=== PATIENT | male | born 1950 | race African-American/Black ===

== ENCOUNTER 2019-08-21 13:54 | Emergency (ER) | payer MEDICARE ==
[2019-08-21] MEDS ORDERED: Aspirin 81 mg CHEW TAB* 81 MG TAB.CHEW PO ONE (14:13)
--- NOTE | 2019-08-21 14:31 | UC ---
General HPI - HPI Summary HPI Summary: 68 yo gentleman c/o "passed out" approx 12:30pm today. Reports that he walked approx 50-60ft from truck to the kitchen and passed out. No h/a. Did not hit head. Denies sob / cp / palpitations. No GI issues. No focal weakness / speech disturbance. - History of Current Complaint Stated Complaint: BLACKINGING OUT Time Seen by Provider: 08/21/19 14:01 Hx Obtained From: Patient PMH/Surg Hx/FS Hx/Imm Hx Previously Healthy: No - htn Cardiovascular History: Hypertension - Family History Known Family History: Positive: Other - mom of stroke Review of Systems All Other Systems Reviewed And Are Negative: Yes Constitutional: Positive: Negative Skin: Positive: Negative Eyes: Positive: Negative ENT: Positive: Negative Respiratory: Positive: Negative Cardiovascular: Positive: Negative Gastrointestinal: Positive: Negative Genitourinary: Positive: Negative Motor: Positive: Other - see hpi Musculoskeletal: Positive: Other: - see hpi Neurological: Positive: Other Psychological: Positive: Negative Is Patient Immunocompromised?: No Physical Exam Triage Information Reviewed: Yes Appearance: Well-Appearing - walked to stretcher. Exam performed in stretcher. Conversing in full sentances easily and appropriately., Well-Nourished Vital Signs Reviewed: Yes Eye Exam: Other - arcus scler. ENT: Positive: Pharynx normal, Nasal congestion, Other - mmm trachea midline Neck exam: Normal Neck: Positive: Supple, Nontender Respiratory Exam: Normal Respiratory: Positive: Chest non-tender, Lungs clear, Normal breath sounds, No respiratory distress, No accessory muscle use Cardiovascular Exam: Other - HR regular, 2 extra beats noted during exam. HR correlates with R radial pulse. Cardiovascular: Positive: Brisk Capillary Refill Abdominal Exam: Normal Abdomen Description: Positive: Nontender Musculoskeletal Exam: Normal - moves x 4 ext's. Neurological Exam: Normal - aaox3 facial expressions grossly symmetric. MMM. CN 1 - 12 no acute issues (+ smell to alcohol swab). Moves x ext's. Strenght 5 /5 x 4 ext's. Distal sens LT present x 4 ext's. No pronator drift noted. Psychological Exam: Normal - conversing easily and appropriately Skin Exam: Normal - nondiaphoretic. + evidence BLE pvd, paucity of hair growth. No unilateral edema. Course/Dx - Course Course Of Treatment: EKG 78 bpm pr [address] elevation v2-3, + lvh, pob lae. No old ekg for comparison. ASA administered. O2 / nc administered. RN placed IV. I reviewed ekg /clinical hx / sx with pt. Concerning for acute cardiac event. Recommend transfer to ED. Mr. Juares carefully considered but absolutely refused to go to the ED. "I'm going home." Clearly disclosed that by not going to the ED, Mr. Juares risks several problems, including albeit not limited to disability, heart attack , stroke, . Upon discharge, Mr. Juares reports that he will go to the ED after all, citing somewhere in [place]. Upon final d/c, he reports that he will go to the ED here in [place]. I called the ED in [place], D/w Dr. Curry 14:23. 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 Upon questioning, Mr. Juares did not want medical information disclosed to family other than going to the ED. Mr. Juares was given the opportunity to ask questions, answered to the best of our ability. - Diagnoses Provider Diagnosis: Syncope Discharge ED - Sign-Out/Discharge Documenting (check all that apply): Patient Departure All imaging exams completed and their final reports reviewed: No Studies - Discharge Plan Condition: Guarded Disposition: AGAINST MEDICAL ADVICE Patient Education Materials: Syncope (ED) Additional Instructions: PLEASE GO DIRECTLY TO THE EMERGENCY DEPARTMENT. STOP AND CALL 911 IF ANY PROBLEMS ON THE WAY. Please go directly to the Emergency Department, do not go home. You are leaving against medical advice - your EKG is abnormal! You received 324mg aspirin here today. - Billing Disposition and Condition Condition: GUARDED Disposition: Against Medical Advice
[2019-08-21 14:43] VITALS: BP 138/74
== END 2019-08-21 14:51 | disposition left against medical advice (07) ==
LOC: UCEAST 13:54
DX: R55 Syncope and collapse (principal); I10 Essential (primary) hypertension
CPT/HCPCS: 93005; 99203; A9270-GY; G0463

== ENCOUNTER 2019-08-21 15:10 | Emergency (ER) | payer MEDICARE ==
[2019-08-21 15:42] LABS: ABS Lymphocytes 1.7 10^3/ul (1.0-4.8); ABS Monocytes 0.8 10^3/ul (0-0.8); ABS Neutrophils 5.2 10^3/ul (1.5-7.7); Eosinophil % 0.5 %; Hematocrit 47 % (42-52); Hemoglobin 15.9 g/dL (14.0-18.0); Lymphocyte % 21.6 %; Mean Corpuscular HGB Conc 34 g/dL (31-36); Mean Corpuscular Hemoglobin 31 pg (27-31); Mean Corpuscular Volume 93 fL (80-94); Mean Platelet Volume 9.1 fL (7.4-10.4); Nucleated Red Blood Cells % 0.1; Platelet Count 238 10^3/uL (150-450); Red Cell Distribution Width 14 % (10-15); White Blood Count 7.8 10^3/uL (3.5-10.8)
[2019-08-21 15:59] LABS: Albumin 4.4 g/dL (3.2-5.2); Albumin/Globulin Ratio 1.5 (1-3); Calcium 9.6 mg/dL (8.6-10.3); Potassium 4.2 mmol/L (3.5-5.0); Total Bilirubin 0.5 mg/dL (0.2-1.0); Total Protein 7.4 g/dL (6.4-8.9)
[2019-08-21 16:00] LABS: Troponin I 0.02 ng/mL (<0.03)
[2019-08-21 16:02] LABS: INR 0.97 (0.82-1.09)
[2019-08-21 17:00] LABS: BUN/Creatinine Ratio 11.1 (8-20); EGFR Non-African American 27.9 (>60)
[2019-08-21 17:01] LABS: EGFR African American 33.7 (>60)
--- NOTE | 2019-08-21 18:03 | ED ---
Complex/Multi-Sys Presentation - HPI Summary HPI Summary: Patient is a 68 y/o M presenting to [facility] with multiple reported falls and syncope that occurred while he was at work today. When patient was brought to ED , the patient had difficulty standing up out of wheelchair and getting into bed. He was slow to respond as well. Patient had stated that he was SOB at the time. With assistance, patient was able to lie down in bed. At this time, patient improved and became more responsive. Patient states that he had right sided chest pain that is characterized as a tightness. He notes that he has been experiencing muscle cramps and a cough as well. Hx of HTN endorsed, he denies Hx of diabetes and NV. He denies PSHx. Patient endorses tobacco, alcohol , and marjiuana usage. 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 On triage, pain is rated 4/10. Home medications and allergies are reviewed. - History Of Current Complaint Chief Complaint: EDSyncope Time Seen by Provider: 08/21/19 17:32 Hx Obtained From: Patient Onset/Duration: Still Present - chest pain, Resolved - syncope Timing: Intermittent, Lasting: Severity Currently: Moderate Location: Pain At: - chest Character: Pressure - "tightness" Associated Signs And Symptoms: Positive: Syncope, SOB, Cough, Chest Pain, Other - positive - falls, muscle cramps, - Allergies/Home Medications Allergies/Adverse Reactions: Allergies Allergy/AdvReac Type Severity Reaction Status Date / Time No Known Allergies Allergy Verified 08/21/19 15:20 Home Medications: Home Medications Albuterol HFA INHALER* [Ventolin HFA Inhaler*] 2 puff INH .Q4-6H PRN 08/21/19 [ History Confirmed 08/21/19] Cefdinir cap* [Cefdinir 300 MG cap (NF)] 300 mg PO BID 08/21/19 [History Confirmed 08/21/19] Chlorthalidone TAB* [Hygroton TAB*] 25 mg PO DAILY 08/21/19 [History Confirmed 08/21/19] Lisinopril TAB* [Prinivil TAB*] 10 mg PO DAILY 08/21/19 [History Confirmed 08/21] amLODIPine TAB* [Norvasc 5 mg TAB*] 10 mg PO DAILY 08/21/19 [History Confirmed 08/21/19] PMH/Surg Hx/FS Hx/Imm Hx Endocrine/Hematology History: Denies: Hx Diabetes Cardiovascular History: Reports: Hx Hypertension Denies: Hx Myocardial Infarction Infectious Disease History: No Infectious Disease History: Denies: Traveled Outside the [place] in Last 30 Days - Family History Known Family History: Positive: Other - mom of stroke - Social History Alcohol Use: Daily Substance Use Type: Reports: Marijuana Substance Use Comment - Amount & Last Used: 2 times a month Smoking Status (MU): Heavy Every Day Tobacco Smoker Type: Cigarettes Review of Systems Positive: Chest Pain Positive: Shortness Of Breath, Cough Musculoskeletal: Other - positive - falls, muscle cramps Positive: Syncope All Other Systems Reviewed And Are Negative: Yes Physical Exam - Summary Physical Exam Summary: Constitutional: Well-developed, Well-nourished, Alert. (-) Distressed; Patient is slow to respond initially but is improved after lying down Skin: Warm, Dry HENT: Normocephalic; Atraumatic Eyes: Conjunctiva normal Neck: Musculoskeletal ROM normal neck. (-) JVD, (-) Stridor, (-) Tracheal deviation Cardio: Rhythm regular, rate normal, Heart sounds normal; Intact distal pulses; Radial pulses are 2+ and symmetric. (-) Murmur Pulmonary/Chest wall: Effort normal. (-) Respiratory distress, (-) Wheezes, (-) Rales Abd: Soft, (-) tenderness, (-) Distension, (-) Guarding, (-) Rebound Musculoskeletal: (-) Edema Lymph: (-) Cervical adenopathy Neuro: Alert, Oriented x3 Psych: Mood and affect Normal Triage Information Reviewed: Yes Vital Signs On Initial Exam: Initial Vitals Temp Pulse Resp BP Pulse Ox 97.5 F 88 16 130/89 96 08/21/19 15:14 08/21/19 15:14 08/21/19 15:14 08/21/19 15:14 08/21/19 15:14 Vital Signs Reviewed: Yes - [place] Coma Scale Best Eye Response: 4 - Spontaneous Best Motor Response: 6 - Obeys Commands Best Verbal Response: 5 - Oriented Coma Scale Total: 15 Procedures - Sedation Patient Received Moderate/Deep Sedation with Procedure: No Diagnostics - Vital Signs Vital Signs Temp Pulse Resp BP Pulse Ox 08/21/19 17:26 97.5 F 76 16 113/58 100 08/21/19 15:14 97.5 F 88 16 130/89 96 - Laboratory Lab Results: Lab Results 08/21/19 08/21/19 08/21/19 Range/Units 15:31 15:31 15:31 WBC 7.8 (3.5-10.8) 10^3/uL RBC 5.10 (4.18-5.48) 10^6 /uL Hgb 15.9 (14.0-18.0) g/dL Hct 47 (42-52) % MCV 93 (80-94) fL MCH 31 (27-31) pg MCHC 34 (31-36) g/dL RDW 14 (10-15) % Plt Count 238 (150-450) 10^3/uL MPV 9.1 (7.4-10.4) fL Neut % (Auto) 67.1 % Lymph % (Auto) 21.6 % [place] % (Auto) 10.2 % Eos % (Auto) 0.5 % Baso % (Auto) 0.6 % Absolute Neuts (auto) 5.2 (1.5-7.7) 10^3/ul Absolute Lymphs (auto) 1.7 (1.0-4.8) 10^3/ul Absolute Monos (auto) 0.8 (0-0.8) 10^3/ul Absolute Eos (auto) 0.0 (0-0.6) 10^3/ul Absolute Basos (auto) 0.0 (0-0.2) 10^3/ul Absolute Nucleated RBC 0.0 10^3/ul Nucleated RBC % 0.1 INR (Anticoag Therapy) 0.97 (0.82-1.09) D-Dimer, Quantitative < 200 (Less Than 230) ng/mL Sodium 133 L (135-145) mmol/L Potassium 4.2 (3.5-5.0) mmol/L Chloride 96 L (101-111) mmol/L Carbon Dioxide 30 (22-32) mmol/L Anion Gap 7 (2-11) mmol/L BUN 26 H (6-24) mg/dL Creatinine 2.35 H (0.67-1.17) mg/dL Est GFR ( Amer) 33.7 (>60) Est GFR (Non-Af Amer) 27.9 (>60) BUN/Creatinine Ratio 11.1 (8-20) Glucose 103 H (70-100) mg/dL Calcium 9.6 (8.6-10.3) mg/dL Total Bilirubin 0.50 (0.2-1.0) mg/dL AST 28 (13-39) U/L ALT 29 (7-52) U/L Alkaline Phosphatase 70 (34-104) U/L Troponin I 0.02 (<0.03) ng/mL Total Protein 7.4 (6.4-8.9) g/dL Albumin 4.4 (3.2-5.2) g/dL Globulin 3.0 (2-4) g/dL Albumin/Globulin Ratio 1.5 (1-3) Result Diagrams: 08/21/19 15:31 08/21/19 15:31 Lab Statement: Any lab studies that have been ordered have been reviewed, and results considered in the medical decision making process. - Radiology CXR Radiology Interpretation Completed By: Radiologist Summary of Radiographic Findings: IMPRESSION: No radiographic evidence of acute cardiopulmonary disease. THIS REPORT WAS REVIEWED BY ED PHYSICIAN. - EKG 1524 Cardiac Rate: NL - rate of 67 BPM EKG Rhythm: Sinus Rhythm Summary of EKG Findings: EKG showed NSR with rate of 67 BPM, LVH criteria met, one PVC noted. ED physician has reviewed and interpreted this EKG. Re-Evaluation - Re-Evaluation First Eval Re-Evaluation Time: 18:45 Comment: Consult with Dr. Tse discussed with patient, brain CT pending. Complex Multi-Symp Course/Dx Course Of Treatment: Patient is here after multiple syncopal episodes today at work. Patient was started on a new blood pressure medicine this morning and was hypotensive per his normal blood pressure upon arrival. Patient had blood performed which was grossly unremarkable several creatinine of 2.35. Patient had an EKG which showed no evidence of arrhythmia or ischemia. Patient negative troponin and d-dimer. I talked the patient's primary care doctor who was comfortable with discharging the patient for follow-up for his creatinine but wanted a CT head performed. Patient was signed out to Dr. Jeronimo pending CT head results. - Diagnoses Provider Diagnoses: Syncope, DEWAYNE (acute kidney injury) - Physician Notifications Time Discussed With Above Provider: 18:40 Instructed by Provider To: Other - 1839 - Patient's case discussed with Dr. Tse , patient's PCP, he requests brain CT be done. Patient will follow up with Dr. Tse on out-patient basis with regards to kidney function Discharge ED - Sign-Out/Discharge Documenting (check all that apply): Sign-Out Patient Signing out patient TO: Osman Lira - Discharge Plan Condition: Stable Disposition: HOME Patient Education Materials: Syncope (ED) Referrals: [facility] [Outside] Additional Instructions: Contact your primary care provider for followup. The tests we ran today looked ok except for some degree of kidney dysfunction that will need followup in the next few days to a week. - Billing Disposition and Condition Condition: STABLE Disposition: Home - Attestation Statements Document Initiated by Scribe: Yes Documenting Scribe: NAUN HOYT Provider For Whom Lexi is Documenting (Include Credential): NIKO KING MD Scribe Attestation: NAUN Ordonez, scribed for NIKO KING MD on 08/22/19 at 1112. Scribe Documentation Reviewed: Yes Provider Attestation: The documentation as recorded by the NAUN aguirre accurately reflects the service I personally performed and the decisions made by me, NIKO KING MD Status of Scribe Document: Viewed
[2019-08-21] MEDS ORDERED: NS 0.9% 1000 ML** 1,000 ML IV ONE (18:20)
--- NOTE | 2019-08-21 19:35 | ED ---
Progress - Progress Note Progress Note: Patient is a sign-out at 19:00 on 08/21/[address] Kishan Crowe MD to Dr. Osman Lira MD at shift change, pending imaging results, further workup, and disposition. Patient will be discharged with a diagnosis of syncope and acute kidney injury. Follow up with PCP in 2-3 days. - Results/Orders Results/Orders: Brain CT IMPRESSION: No acute intracranial abnormality. Left maxillary sinus disease, probably acute. - EKG/XRAY/CT CT: Re-Evaluation - Re-Evaluation First Eval Re-Evaluation Time: 18:45 Comment: Consult with Dr. Tse discussed with patient, brain CT pending. Course/Dx - Course Course Of Treatment: Patient is a sign-out at 19:00 on 08/21/[address] Kishan Crowe MD to Dr. Osman Lira MD at shift change, pending imaging results, further workup, and disposition. Brain CT IMPRESSION: No acute intracranial abnormality. Left maxillary sinus disease, probably acute. Patient will be discharged with a diagnosis of syncope and acute kidney injury. Follow up with PCP in 2-3 days. - Diagnoses Provider Diagnoses: Syncope, DEWAYNE (acute kidney injury) - Provider Notifications Time Discussed With Above Provider: 18:40 Instructed by Provider To: Other - 1840 - Patient's case discussed with Dr. Tse , patient's PCP, he requests brain CT be done. Patient will follow up with Dr. Tse on out-patient basis with regards to kidney function Discharge ED - Sign-Out/Discharge Documenting (check all that apply): Patient Departure - Discharge, Receiving Sign-Out Receiving patient FROM: Kishan Crowe - Patient is a sign-out at 19:00 on 06/[address] Kishan Crowe MD to Dr. Osman Lira MD at shift change, pending imaging results, further workup, and disposition. - Discharge Plan Condition: Stable Disposition: HOME Patient Education Materials: Syncope (ED) Referrals: [facility] [Outside] Additional Instructions: Contact your primary care provider for followup. The tests we ran today looked ok except for some degree of kidney dysfunction that will need followup in the next few days to a week. - Billing Disposition and Condition Condition: STABLE Disposition: Home - Attestation Statements Document Initiated by Scribe: Yes Documenting Scribe: Dilcia Pantoja Provider For Whom Scribe is Documenting (Include Credential): Osman Lira MD Scribe Attestation: I, Dilcia Pantoja, scribed for Osman Lira MD on 08/22/19 at 0621. Scribe Documentation Reviewed: Yes Provider Attestation: The documentation as recorded by the Dilcia agiurre accurately reflects the service I personally performed and the decisions made by me, Osman Lira MD Status of Scribe Document: Viewed
[2019-08-21 20:34] VITALS: BP 147/86
== END 2019-08-21 20:33 | disposition home or self-care (01) ==
LOC: ED 15:10
DX: R55 Syncope and collapse (principal); N17.9 Acute kidney failure, unspecified; I10 Essential (primary) hypertension; F17.210 Nicotine dependence, cigarettes, uncomplicated; Z79.899 Other long term (current) drug therapy
CPT/HCPCS: 36415; 70450; 71046; 80053; 82550; 83880; 84484; 85025; 85379; 85610; 93005; 96360; 99283